=== PATIENT | male | born 1985 | race Caucasian/White ===

== ENCOUNTER 2024-04-15 06:54 | Emergency (ER) | payer BC, MEDICAID ==
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
[2024-04-15] MEDS: LIDOCAINE JELLY 2% 6 ML JEL.PF.APP TOP STA (08:16)
[2024-04-15] MEDS: IBUPROFEN 600 MG TABLET PO STA (08:17)
[2024-04-15] MEDS: dexAMETHasone 4 MG TABLET PO STA (08:17)
[2024-04-15] MEDS: ACETAMINOPHEN 325 MG TABLET PO STA (08:17)
[2024-04-15 08:47] VITALS: BP 136/68; O2SAT 99
== END 2024-04-15 08:38 | disposition home or self-care (01) ==
LOC: ED 06:54
DX: L55.1 Sunburn of second degree (principal); X32.XXXA Exposure to sunlight, initial encounter; Y93.19 Activity, other involving water and watercraft; F17.200 Nicotine dependence, unspecified, uncomplicated
CPT/HCPCS: 99283; 99284; A9270; J8540

== ENCOUNTER 2024-04-27 20:32 | Emergency (ER) | payer SELFPAY ==
[2024-04-27 20:53] LABS: BILIRUBIN,URINE NEGATIVE (NEGATIVE); GLUCOSE, URINE (UA) NEGATIVE (NEGATIVE); KETONES,URINE (UA) NEGATIVE (NEGATIVE); LEUKOCYTE ESTERASE, URINE NEGATIVE (NEGATIVE); NITRITE,URINE NEGATIVE (NEGATIVE); OCCULT BLOOD,URINE LARGE (NEGATIVE); PROTEIN,URINE NEGATIVE (NEGATIVE); UROBILINOGEN,URINE 0.2 (NORMAL) E.U./dL (NORMAL)
--- NOTE | 2024-04-27 20:53 | ED Physician Documentation ---
PD HPI ABD PAIN - Stated complaint Stated Complaint: BACK PX - Chief complaint Chief Complaint: Abd Pain - History obtained from History obtained from: Patient - History of Present Illness Timing - onset: Today Timing - details: Abrupt onset, Still present (much lessened in the past 1/2 hour. Onset abrupt and intense and lasted severely for 1/2 hour or so, then lessened and repeated couple of times. [place] get to [place] right away. Was easing to mild at ED arrival.) Quality: Cramping, Aching, Pain Location: LLQ Radiation: Left flank Associated symptoms: Nausea, Vomiting, Hematuria. No: Fever, Diarrhea, Constipation, Dysuria Review of Systems Constitutional: denies: Fever, Chills GI: reports: Nausea, Vomiting (when pain was the most intense.). denies: Diarrhea : denies: Dysuria, Frequency PD PAST MEDICAL HISTORY - Past Medical History Past Medical History: No Cardiovascular: None Respiratory: None Endocrine/Autoimmune: None GI: None : None HEENT: None Psych: None Musculoskeletal: None Derm: None - Past Surgical History Past Surgical History: No - Present Medications Home Medications: Ambulatory Orders Medication Instructions Recorded Confirmed HYDROcod/ACETAM 5/325 [Vicodin 1 - 2 ea PO Q6H PRN #15 tablet 12/01/14 5/325] Oxycodone HCl/Acetaminophen 2 mg PO DAILY 12/01/14 12/01/14 [Percocet 5-325 mg Tablet] Hydrocodone/Acetaminophen 1 - 2 each PO Q6H PRN #15 tablet 02/28/15 [Hydrocodon-Acetaminophen 5-325] Cetirizine [ZyrTEC] 10 mg PO BID #15 tablet 04/15/24 Lidocaine Jelly 2% [Glydo] 1 applic TOP TID PRN #60 gm 04/15/24 Meloxicam [Mobic] 7.5 mg PO BID 10 Days #20 tablet 04/15/24 Oxycodone HCl/Acetaminophen 1 each PO Q6H PRN #18 tablet 04/15/24 [Percocet 5-325 mg Tablet] dexAMETHasone [Decadron] 4 mg PO DAILY #5 tablet 04/15/24 - Allergies Allergies/Adverse Reactions: Allergies Allergy/AdvReac Type Severity Reaction Status Date / Time No Known Drug Allergies Allergy Verified 04/27/24 20:48 - Social History Does the pt smoke?: Yes Smoking Status: Current every day smoker Does the pt drink ETOH?: Yes Does the pt have substance abuse?: No - Immunizations Immunizations are current?: Yes - POLST Patient has POLST: No PD ED PE NORMAL - Vitals Vital signs reviewed: Yes - General General: Alert and oriented X 3, Well developed/nourished - Cardiac Cardiac: RRR, No murmur - Respiratory Respiratory: No respiratory distress, Clear bilaterally - Abdomen Abdomen: Normal bowel sounds, Soft, Non tender, Non distended - Back Back: Other (mild CVA tender left side. ) - Derm Derm: Normal color, Warm and dry Results - Vitals Vitals: Vital Signs - 24 hr 04/27/24 04/27/24 21:48 23:11 Heart Rate 68 70 Respiratory 14 16 Rate Blood Pressure 144/68 H 140/60 H O2 Saturation 96 96 Oxygen O2 Source Room air - Labs Labs: Laboratory Tests 04/27/24 20:45 Urine Color YELLOW Urine Clarity CLEAR Urine pH 6.0 Ur Specific [place] 1.025 Urine Protein NEGATIVE Urine Glucose (UA) NEGATIVE Urine Ketones NEGATIVE Urine Occult Blood LARGE H Urine Nitrite NEGATIVE Urine Bilirubin NEGATIVE Urine Urobilinogen 0.2 (NORMAL) Ur Leukocyte Esterase NEGATIVE Urine RBC 0-5 Urine WBC 0-3 Ur Squamous Epith Cells NONE SEEN Urine Bacteria None Seen Urine Culture Comments NOT INDICATED PD Medical Decision Making - ED course Complexity details: reviewed results (CT without stones nor hydro but no other abnormality. Urine with large blood. Howbeit no other cause seen, and blood inurine and symptoms c/w stone, I presume he passed it and is mild pain now due to ureteral spasm and inflammation. Presume will dissipate over 1-2 days. Discussed this presumption. ), considered differential (left flank pain abrupt, with undulating severity. Not improved with position nor movement. Left flank to left abd. Is moderate at ED arrival. Noted dark urine after onset. ), d/w patient Departure - Departure Disposition: 01 Home, Self Care Clinical Impression: Left sided abdominal pain, Acute left flank pain Condition: Stable Record reviewed to determine appropriate education?: Yes Instructions: ED Stone Renal Passed, ED Abdominal Pain Excl Appendx Male Comments: You do have some mild blood in the urine but no signs of infection. Your stone location and character sound like a kidney stone. The CT scan did not identify any stones or blockage. However it is reasonably likely that you had a small stone that moved in small jags down the ureter given the episodes of pain and then passed. At which point the urine would have some blood to it like it does and the stone would not be present as it likely came out with the urine. This would be the most likely diagnosis and with that you can have some crampy pains of the ureter intermittently for a day or 2 because of the irritation and spasms. Stay well-hydrated. Ibuprofen or naproxen 3 times daily for the next couple of days. Add Tylenol if needed. Add the pain pills if needed. I would anticipate only mild symptoms for short-term. Alternatives since there was no actual identification of a stone, would think of alternatives for episodes of pain like that. There could have been some brief temporary twisting of intestine. I did not feel a hernia in the scrotum but the CT scan look like there may be a small 1. This would usually be an incidental finding and not a cause of any symptoms or problems and just be left alone. However if you have repeated episodes of pain like this on and off that would be a consideration to investigate. If you have any onset of pain that persists, then please return to the ER to look for other causes and reasons. Another alternative would be musculoskeletal pain. Did not quite have the character of that but still a consideration. The ibuprofen and Tylenol would still be appropriate. Hopefully this will just be done and gone into tomorrow presuming a small passed stone. Forms: PCP List Discharge Date/Time: 04/27/24 23:11
[2024-04-27 21:02] LABS: BACTERIA,URINE None Seen /HPF (None Seen); CLARITY,URINE CLEAR (CLEAR); RBC,URINE 0-5 /HPF (0-5); SQUAMOUS EPITHELIAL CELL,UR NONE SEEN (<= Few); WBC,URINE 0-3 /HPF (0-3)
[2024-04-27] MEDS ORDERED: oxyCODONE/ACET 5/325 Prepack 4 PO STA (21:25)
[2024-04-27] MEDS ORDERED: ONDANSETRON ODT 4 MG Prepack 2 TL PRN (21:25)
[2024-04-27] MEDS: KETOROLAC 30 MG/ML VIAL IM STA (21:41)
[2024-04-27 21:57] VITALS: O2SAT 96
--- NOTE | 2024-04-27 22:31 | CT Report ---
PROCEDURE: Abdomen/Pelvis WO INDICATIONS: left flank to abd pain few hours ago TECHNIQUE: A CT scan of the abdomen and pelvis was performed without the use of intravenous contrast. Images we re recorded and evaluated at appropriate window settings. Reformats: coronal and sagittal. For radiat ion dose reduction, the following was used: automated exposure control, adjustment of mA and/or kV ac cording to patient size. COMPARISON: None. FINDINGS: Image quality: Diagnostic. Lower chest: Unremarkable. Liver: No contour-deforming mass. Liver is enlarged measuring 21.5 cm with steatosis. Gallbladder: Unremarkable. Biliary tree: No intrahepatic or extrahepatic dilation, accounting for age. Spleen: No splenomegaly. Pancreas: No pancreatic ductal dilation. Adrenals: No adrenal nodule. Kidneys and ureters: No hydronephrosis. No contour-deforming mass. Stomach, bowel and peritoneum: No gastric or small bowel dilation. No abnormal wall thickening. No pa thologic free fluid. Lymph nodes: No central or retroperitoneal adenopathy. Vessels: No infrarenal aortic aneurysm. Reproductive organs: Unremarkable. Bladder: Bladder wall thickness is normal, accounting for underdistention. No calcified bladder stone s. Pelvic lymph nodes: No adenopathy by size criteria. Bones: No aggressive osseous abnormality. Other: No significant ventral or inguinal hernia. IMPRESSION: No hydronephrosis or obstructing renal stone. No acute intra-abdominal or pelvic process identified. Reviewed by: Shanna Mireles MD on 04/27/2024 10:29 PM PDT Approved by: Shanna Mireles MD on 04/27/2024 10:29 PM PDT Station ID: [id number]
[2024-04-27 23:15] VITALS: BP 140/60
== END 2024-04-27 23:11 | disposition home or self-care (01) ==
LOC: ED 20:32
DX: R10.32 Left lower quadrant pain (principal); R31.0 Gross hematuria; F17.200 Nicotine dependence, unspecified, uncomplicated
CPT/HCPCS: 81001; 87086; 96372; 99283; 99284

== ENCOUNTER 2024-07-06 10:44 | Outpatient (CLI) | payer SELFPAY ==
[2024-07-06 11:00] LABS: BASOPHILS # (AUTO) 0.1 10^3/uL (0.0-0.1); BASOPHILS % (AUTO) 0.7 %; EOSINOPHILS # (AUTO) 0.2 10^3/uL (0.0-0.7); HCT - HEMATOCRIT 44.5 % (42.0-52.0); HGB - HEMOGLOBIN 14.8 g/dL (14.0-18.0); LYMPHOCYTES # (AUTO) 2.3 10^3/uL (1.5-3.5); LYMPHOCYTES % (AUTO) 25.3 %; MEAN CORPUSCULAR HEMOGLOBIN 28.5 pg (27.0-31.0); MEAN CORPUSCULAR HGB CONC 33.3 g/dL (32.0-36.0); MEAN CORPUSCULAR VOLUME 85.7 fL (80.0-94.0); MEAN PLATELET VOLUME 12.2 fL (7.4-11.4); MONOCYTES # (AUTO) 0.5 10^3/uL (0.0-1.0); MONOCYTES % (AUTO) 5.5 %; NEUTROPHILS # (AUTO) 5.9 10^3/uL (1.5-6.6); NEUTROPHILS % (AUTO) 66.3 %; PLT - PLATELET COUNT 168 10^3/uL (130-450); RED BLOOD COUNT 5.19 10^6/uL (4.70-6.10); RED CELL DISTRIBUTION WIDTH 12.9 % (12.0-15.0); WHITE BLOOD COUNT 8.9 x10^3/uL (4.8-10.8)
[2024-07-06 11:24] LABS: ALBUMIN 4.2 g/dL (3.2-5.5); ALBUMIN/GLOBULIN RATIO 1.4 (1.0-2.2); BILIRUBIN,TOTAL 0.5 mg/dL (0.2-1.0); CALCIUM 9.7 mg/dL (8.5-10.3); CREATININE 1.1 mg/dL (0.6-1.3); POTASSIUM 4.2 mmol/L (3.5-4.5); TOTAL PROTEIN 7.3 g/dL (6.4-8.9)
[2024-07-06 11:37] LABS: THYROID STIMULATING HORMONE 2.75 uIU/mL (0.34-5.60)
== END 2024-07-06 10:45 | disposition home or self-care (01) ==
LOC: LAB 10:44
PROVIDERS: ATTEND Physician Assistant
DX: N62 Hypertrophy of breast (principal)
CPT/HCPCS: 36415; 80053; 84443; 85025